=== PATIENT | female | born 1960 | race Caucasian/White ===

== ENCOUNTER 2025-01-02 22:58 | Emergency (ER) | payer MEDICARE, BC, SELFPAY ==
[2025-01-02 22:59] VITALS: BP 200/116
[2025-01-02 23:48] LABS: Hematocrit 40.0 % (37.0-47.0); Hemoglobin 13.6 g/dL (12.0-16.0); Mean Corp Hgb Conc. 34.0 g/dL (33.0-37.0); Mean Corpuscular Volume 87.5 fL (81.0-99.0); Nucleated Red Blood Cells % 0 %; Platelet Count 174 10^3/uL (130-400); Red Cell Dist. Width 12.8 % (11.5-14.5)
[2025-01-03 00:10] LABS: ALT (SGPT) 20 U/L (0-35); AST (SGOT) 21 U/L (14-36); Albumin 4.3 g/dl (3.5-5.0); Alkaline Phosphatase 116 U/L (38-126); Blood Urea Nitrogen 11 mg/dl (7-17); Calcium 9.2 mg/dl (8.4-10.2); Carbon Dioxide 28 mmol/L (22-30); Chloride 108 mmol/L (98-107); Glucose 100 mg/dl (70-99); Potassium 3.8 mmol/L (3.5-5.1); Sodium 139 mmol/L (135-145); Total Protein 7.0 g/dl (6.3-8.2); eGFR > 60.00
[2025-01-03 00:22] LABS: Troponin I < 0.012 ng/ml
[2025-01-03 00:52] VITALS: BP 153/80
[2025-01-03 01:00] VITALS: BP 158/92
[2025-01-03 02:00] VITALS: BP 153/89
[2025-01-03 03:00] VITALS: BP 155/94
--- NOTE | 2025-01-03 03:27 | ED.GENMED ---
History of Present Illness
General
Chief Complaint: Abdominal Symptoms
Source: patient, spouse and previous radiology exam (Coronary calcium score of October)
Exam Limitations: none
Time Seen by Provider: 01/03/25 03:10
Nursing documentation reviewed up to this point in time: agreed with
History of Present Illness
History of Present Illness:
This is a 64-year-old woman with no significant past medical history, takes no medicines on a daily basis. She presents with intermittent nausea that began this morning, intermittent throughout the day, worse after breakfast, worse after dinner.
She did noted some left upper quadrant, left lower chest discomfort this evening that seem to worsen after dinner. No history of similar episodes in the past. No cough no shortness of breath, no diaphoresis, no fever no chills. No diarrhea or
constipation. No neck nor back pain. No dysuria no urgency or hematuria. No weakness no numbness, no headache, no dizziness or lightheadedness.
No close contacts with similar symptoms.
Past History
Past History
ED Past Medical History: None
ED Past Surgical History: Gynecological and Orthopedic (Rotator cuff)
Social History
Tobacco: Non-smoker
Alcohol: Occasional
Drug: None
Personal:
Living: with family
Family History
Family History: Hypertension
Phy Exam
Physical Exam
Physical Exam:
GENERAL: 64-year-old woman appears her stated age. Pleasant, appears in no acute distress. is accompanying.
EYE: anicteric
NECK: Supple, nontender, no meningismus, no significant adenopathy.
ENT: oral mucosa is moist. No rhinorrhea.
CARDIAC: Regular rate and rhythm. no murmur.
LUNGS: Clear breath sounds bilaterally, no acute respiratory distress, no wheezes/rales/rhonchi
ABDOMEN: Soft, nondistended, mild tenderness left upper quadrant, no r/g, no cvat. normoactive BS.
NEUROLOGICAL: Alert and oriented x3, no focal neuro deficits.
SKIN: Warm and dry, normal color, skin intact. No rash.
MUSCULOSKELETAL: No C/C/E. peripheral pulses are full and equal b/l. No palpable tenderness.
PSYCH: Normal and appropriate interaction.
Course
Orders/Labs/Results
Orders:
Orders
01/02/25 23:04
ECG [Electrocardiogram (*1)] Urgent
Reason for Study: Chest Pain
EKG- Treatment ONCE
01/02/25 23:36
Comprehensive Metabolic Panel Urgent
Lipase Urgent
Comment: ADD ON
01/02/25 23:37
Complete Blood Count/With Diff Urgent
Troponin I Urgent
01/03/25 03:11
Add On- LAB Urgent
Tests Added?: LIPASE
01/03/25 03:19
Troponin I Urgent
01/03/25 03:26
CT Abd/pelvis W Iv Cont Urgent
Comment:
Reason For Exam: acute LUQ pain, nausea, CP
CR Chest - 2 Views Urgent
Comment:
Reason For Exam: chest pain, nausea
Abnormal Lab Results
01/02/25 01/02/25
23:36 23:37
MPV 11.3 H fL
(7.4-10.4)
Chloride 108 H mmol/L
(98-107)
Glucose 100 H mg/dl
(70-99)
01/02/25 23:37
01/02/25 23:36
Vital Signs
Initial and Last Documented VS:
Initial Vital Signs
Temp Pulse Resp BP Pulse Ox
97.8 F 78 20 200/116 98
01/02/25 22:59 01/02/25 22:59 01/02/25 22:59 01/02/25 22:59 01/02/25 22:59
Last Documented Vital Signs
Temp Pulse Resp BP Pulse Ox
97.8 F 59 21 137/75 95
01/02/25 22:59 01/03/25 03:24 01/03/25 03:24 01/03/25 05:00 01/03/25 05:01
MDM/Problems Addressed
Differential Diagnosis Includes:
Concern for ACS, GERD, gastritis, pancreatitis, gastroenteritis, colitis, diverticulitis, kidney stone.
Although patient initially noted to be significantly hypertensive, blood pressures improved 150s/90. Mild intermittent symptoms throughout the day, no back pain, thus dissection doubtful.
Thus far labs are unremarkable. EKG is unremarkable. Initial troponin is negative.
Will check lipase, repeat troponin. Will check chest x-ray as well as CT abdomen pelvis.
*Radiology
Radiology exam reviewed: preliminary read by ED provider (Chest x-ray is unremarkable. Clear lung tello. Normal heart size. Normal mediastinum.) and radiology read reviewed (CT abdomen pelvis shows an exophytic left upper pole renal lesion
measuring up to 3.6 cm with mixed fat and enhancing soft tissue components suggestive of an angiomyolipoma.)
*Pulse Oximetry
SaO2: 94
Oxygen Mode of Delivery: Room air
Patient hypoxic: no
*EKG
Interpreted by ED Provider?: Yes
Interpretation: normal
Comparison EKG: no comparison EKG present
Rate: normal
Rhythm: sinus
Ovid: normal axis
Interval: normal interval
QRS Pattern: normal QRS
Ischemia: no ischemia
*[employer] Interpretation
Rate: normal
Interpretation: normal
Rhythm: sinus
*Critical Care Note
Total Time (30-74mins, 75-104mins- exclusive of procedures): Not Applicable
Update Note
Update Note:
Patient resting comfortably.
Repeat troponin remains negative.
Lipase is normal.
Chest x-ray is unremarkable.
CT abdomen pelvis is unremarkable save for a 3 cm left renal exophytic nodule that patient has had for over 10 years. She states this nodule is noncancerous, follows annually with Diego Mccoy.
At this point unclear as to cause for left-sided chest discomfort. Currently comfortable. She may have had an element of acid reflux, gastritis, perhaps musculoskeletal pain.
She continues with mild hypertension and recommend follow-up with her PCP for which she has an appointment the of this month.
Will refer to our chest pain hotline as well.
ED Attending Note
-
Portions of this chart may have been created with voice recognition software.� Occasional wrong word or��sound alike� substitutions may have occurred due to the inherent limitations of voice recognition software.
Discharge Plan
Departure
Patient Disposition: Home (Routine Discharge)
Date of Disposition: 01/03/25
Time of Disposition: 04:58
Patient with high blood pressure during this ER visit?: Yes
Condition: Good
Discharge Problem:
Nonspecific chest pain
Instructions: Chest Pain DCA Follow Up, BLOOD PRESSURE
Referrals:
UNKNOWN - PT DOES,NOT KNOW [Family Provider]
Interventions
Interventions:
*Risk Screen - Suicide Last Done: 01/02/25 22:59
*General Assessment Last Done: 01/03/25 03:00
*Neglect/Abuse Screening Last Done: 01/02/25 22:59
*ED- Fall Risk Assessment Last Done: 01/03/25 03:00
*ED COVID-19 Vaccine History Last Done: 01/03/25 03:00
*Nursing Disposition Last Done: 01/03/25 05:07
UY-Pjtcno-Dlhxpxeycr Assessment Last Done: 01/03/25 00:58
Discharge Date and Time
Discharge Date/Time: 01/03/25 05:14
Print Language: [id number]
[2025-01-03 03:57] LABS: Lipase 142 U/L (23-300)
[2025-01-03 04:21] LABS: Troponin I < 0.012 ng/ml
[2025-01-03 05:00] VITALS: BP 137/75
== END 2025-01-03 05:14 | disposition home or self-care (01) ==
LOC: EMR 22:58
PROVIDERS: Student in an Organized Health Care Education/Training Program; EMERGENCY PHYSICIAN Emergency Medicine
DX: R07.89 Other chest pain (principal); I10 Essential (primary) hypertension; Z82.49 Family history of ischemic heart disease and other diseases of the circulatory system
CPT/HCPCS: 99284; 71046; 74177; 80053; 83690; 84484; 85025; 93005; Q9967

== ENCOUNTER → 2025-02-13 10:12 | Outpatient (REF) | payer MEDICARE, BC, SELFPAY | LOC: HWRCS 10:12 | PROVIDERS: ATTENDING PHYSICIAN Internal Medicine Cardiovascular Disease; FAMILY PHYSICIAN Internal Medicine | DX: I10 Essential (primary) hypertension (principal) | CPT/HCPCS: 93306 ==